=== PATIENT | female | born 1990 | race Caucasian/White ===

== ENCOUNTER 2024-12-29 12:57 | Emergency (ER) | payer OTHER ==
[~2024-12-29] VITALS: Ht 154.9 cm; Wt 81.8 kg
[2024-12-29 13:17] VITALS: TEMP 97.5
[2024-12-29 15:28] LABS: APPEARANCE,URINE CLEAR (CLEAR); BILIRUBIN,URINE NEGATIVE (NEGATIVE); COLOR,URINE LIGHT YELLOW (YELLOW); GLUCOSE, URINE (UA) NEGATIVE (NEGATIVE); KETONES,URINE NEGATIVE (NEGATIVE); LEUKOCYTE ESTERASE ,URINE NEGATIVE (NEGATIVE); NITRATE,URINE NEGATIVE (NEGATIVE); OCCULT BLOOD,URINE NEGATIVE (NEGATIVE); PROTEIN,URINE NEGATIVE (NEGATIVE); SPECIFIC GRAVITIY, URINE 1.008 (1.003-1.030); UROBILINOGEN,URINE <=1.0 mg/dL (<=1.0)
[2024-12-29 15:45] LABS: HCG,QUAL URINE NEGATIVE (NEGATIVE)
[2024-12-29] MEDS: LIDOCAINE 5% TRANSDERMAL PATCH TD ONE (15:53)
[2024-12-29] MEDS: KETOROLAC TROMETHAMINE 30 MG/ML VIAL IM ONE (15:53)
[2024-12-29] MEDS: methocarbamoL 500 MG TABLET PO ONE (16:52)
[2024-12-29] MEDS: PredniSONE 20 MG TABLET PO ONE (17:52)
[2024-12-29] MEDS ORDERED: PRED-554 PO (18:45)
[2024-12-29] MEDS ORDERED: METH-812 PO (18:45)
[2024-12-29 18:51] VITALS: BP 116/74; PULSE 81; RESP 18; O2SAT 98
[2024-12-29] MEDS ORDERED: PRED20TA3 PO (19:05)
== END 2024-12-29 18:52 | disposition home or self-care (01) ==
LOC: EMS 13:01
DX: S39.012A Strain of muscle, fascia and tendon of lower back, initial encounter (principal); X58.XXXA Exposure to other specified factors, initial encounter; Y93.89 Activity, other specified; Y92.89 Other specified places as the place of occurrence of the external cause; Y99.8 Other external cause status
CPT/HCPCS: 99284; 81003; 84703; 96372; J1885; J7512